=== PATIENT | male | born 1955 | race Caucasian/White ===

== ENCOUNTER 2022-01-20 13:02 | Inpatient (IN) | payer OTHER, BC ==
[~2022-01-20] VITALS: Ht 172.7 cm; Wt 59.0 kg
[2022-01-20 13:07] VITALS: BP_SYST 104; BP_SYST 98; BP_DIAS 57; BP_DIAS 60
--- NOTE | 2022-01-20 13:30 | NUR ---
66/M BIBA FROM HOME WITH C/O THROAT PAIN X1 MONTH. REPORTS PAIN HAS BEEN WORSENING TODAY AND CAUSING A HEADACHE, DENIES TAKING PAIN MEDICATIONS. PATIENT DENIES SOB, OXYGEN 98% ON ROOM AIR UPON ARRIVAL TO ED. PATIENT REPORTS HX OF THROAT CANCER, STATES HE HAS BEEN HAVING DIFFICULTY EATING AND DRINKING DUE TO PAIN, PATIENT REPORTS SIMLAR SYMPTOMS IN THE PAST. UPON ARRIVAL PATIENT PLACED IN GOWN ON BEDSIDE DIRECTOR OF CARDIAC REHABILITATION.
--- NOTE | 2022-01-20 14:19 | NUR ---
DR PASCUAL REQUESTED TO SPEAK WITH PTS FAMILY. ATTEMPTED TO CALL, NO ANSWER EM ROBLEDO, PTS DAUGHTER CALLED BACK, TRANSFERED TO DR PASCUAL
[2022-01-20] MEDS ORDERED: NACL 0.9% 1,000 ML IV ONE (14:30)
[2022-01-20] MEDS ORDERED: ceFAZolin 1,000 MG VIAL ONE (15:15)
--- NOTE | 2022-01-20 15:18 | NUR ---
PATIENT [facility] TO CT [facility]
[2022-01-20 15:21] LABS: BASOPHILS % (AUTO) 0.2 % (0.0-2.0); EOSINOPHILS # (AUTO) 0.1 K/uL (0-0.4); EOSINOPHILS % (AUTO) 0.8 % (0.0-4.0); HEMOGLOBIN 10.8 g/dL (12.0-18.0); LYMPHOCYTES # (AUTO) 1.4 K/uL (2.0-11.5); LYMPHOCYTES % (AUTO) 13.7 % (20.5-51.1); MEAN CORPUSCULAR HEMOGLOBIN 31 pg (27-31); MEAN CORPUSCULAR HGB CONC 35 g/dL (33-37); MEAN CORPUSCULAR VOLUME 89.9 fL (80-94); MONOCYTES # (AUTO) 0.6 K/uL (0.8-1.0); MONOCYTES % (AUTO) 5.8 % (1.7-9.3); NEUTROPHILS % (AUTO) 79.5 % (42.2-75.2); PLATELET COUNT (AUTO) 225 K/uL (140-450); RED BLOOD CELL COUNT(AUTO) 3.45 MIL/uL (4.20-6.10); RED CELL DISTRIBUTION WIDTH 14.1 % (11.6-13.7)
[2022-01-20] MEDS ORDERED: cefTRIAXone 1,000 MG VIAL ONE (15:37)
[2022-01-20 15:38] LABS: ALBUMIN 2.7 g/dL (3.4-5.0); ANION GAP 11.8 (8-16); ASPARTATE AMINOTRANSFERASE 18 U/L (15-37); CARBON DIOXIDE 26.2 mmol/L (21-32); CHLORIDE 107 mmol/L (98-107); CREATININE 0.8 mg/dL (0.6-1.3); GFR ARICAN-AMERICAN 124 mL/min (>90); GLUCOSE 91 mg/dL (74-106); SALICYLATE < 2.8 mg/dL (2.8-20.0); SODIUM SERUM 141 mmol/L (136-145); TOTAL BILIRUBIN 0.6 mg/dL (0.0-1.0); UREA NITROGEN, BLOOD 10 mg/dL (7-18)
[2022-01-20 15:39] LABS: ACETAMINOPHEN < 0.5 ug/ml (10-30)
--- NOTE | 2022-01-20 16:35 | NUR ---
VIVIAN SWAB COLLECTED AND WALKED TO LAB
[2022-01-20 16:38] LABS: APPEARANCE,URINE CLEAR (CLEAR); BILIRUBIN,URINE NEGATIVE (NEGATIVE); BLOOD, URINE NEGATIVE (NEGATIVE); COLOR,URINE YELLOW (YELLOW); LEUKOCYTE ESTERASE ,URINE NEGATIVE (NEGATIVE); NITRITE, URINE NEGATIVE (NEGATIVE); UGLUCOSE NEGATIVE (NEGATIVE)
[2022-01-20 17:04] LABS: BARBITURATE, URINE NEGATIVE ng/ml (NEG <=200); BENZODIAZEPINE, URINE NEGATIVE ng/mL (NEG <=200); CANNABINOID, URINE NEGATIVE ng/mL (NEG <=50); COCAINE, URINE NEGATIVE ng/mL (NEG <=300); OPIATE, URINE NEGATIVE ng/mL (NEG <=2000); PHENCYCLIDINE SCREEN,URINE NEGATIVE ng/mL (NEG <=25)
--- NOTE | 2022-01-20 17:45 | NUR ---
PATIENT RESTING IN BED ON BEDSIDE BOWLING BALL FINISHER, WILL CONTINUE TO MONITOR.
[2022-01-20] MEDS: DEXT 5% / NACL 0.45% 1,000 ML IV SCH ×2 (17:51→17:52)
--- NOTE | 2022-01-20 19:15 | NUR ---
RECEIVED REPORT FROM CHIDI TYSON
--- NOTE | 2022-01-20 19:22 | NUR ---
Pt report given to OSMAN PENN. Transfer of care at this time.
--- NOTE | 2022-01-20 19:58 | NUR ---
ADMIT ORDERS TO MEDSURG. PENDING BED ASSIG. PT ON MONITOR . USING URINAL AT BEDSIDE. PT IS NPO. SIDE RAILS UP X2
--- NOTE | 2022-01-20 20:36 | NUR ---
Patient will be admitted to care of DR NARAYAN. Admited to MED SURG. Will go to [id number]. Belongings list completed. Report to JUDAH TYSON.
[2022-01-20 21:00] VITALS: BP 134/68
--- NOTE | 2022-01-20 21:30 | NUR ---
Pt Admitted from ED at 20:40 with dx of dysphagia due to throat pain, under the care of Dipak Mcgarry. Pt is alert an oriented to person, place and situation, with periods of confusion / forgetfulness. Oriented to room , call light within reach., bed alarm applied for safety. Patient with episodes of getting out of bed with out calling for assistance. Pt requested for Seroquel ( unknown dose) and a sleeping pill that he takes at home , unable to reach pt's dtr at the number that pt provided. Dr. Garduno notified of the above, and he gave orders to give pt Seroquel 50mg po x1 and trazodone 50mg po q hs as needed for sleep , noted and carried out. pt aware. Continue to monitor and meet needs.
[2022-01-20] MEDS ORDERED: QUEtiapine FUMARATE 25 MG TAB PO SCH (22:15)
[2022-01-20] MEDS ORDERED: ONDANSETRON 4 MG/2 ML VIAL IVP PRN (22:45)
--- NOTE | 2022-01-20 23:18 | NUR ---
PER JAH KIM - SHE HAS DIFFICULTY TO ACCESS THE COMPUTER SYSTEM TO CARRY OUT 'S ORDER - PER HER PERMISSION - I WILL CARRY OUT THE A PALIWAL ORDER : NPO EXCEPTS MEDS .
[2022-01-20] MEDS: MORPHINE SULFATE 2 MG/ML SYR IVP PRN (23:25)
[2022-01-21 04:00] VITALS: BP 133/70
[2022-01-21] MEDS: DEXT 5% / NACL 0.45% 1,000 ML IV SCH ×2 (04:58→22:42)
--- NOTE | 2022-01-21 06:47 | NUR ---
PATIENT HAS BEEN SCREENED AND CATEGORIZED HIGH NUTRITION RISK. PATIENT WILL BE SEEN WITHIN 1-2 DAYS OF ADMISSION. 01/21/22-01/22/22 PAU FRAZIER MS, RDN
[2022-01-21 07:30] LABS: ANION GAP 10.1 (8-16); CARBON DIOXIDE 28.9 mmol/L (21-32); CREATININE 0.7 mg/dL (0.6-1.3)
[2022-01-21 07:31] LABS: BASOPHILS % (AUTO) 0.6 % (0.0-2.0); EOSINOPHILS # (AUTO) 0.2 K/uL (0-0.4); EOSINOPHILS % (AUTO) 2.8 % (0.0-4.0); HEMATOCRIT 28.5 % (36-52); HEMOGLOBIN 10.1 g/dL (12.0-18.0); LYMPHOCYTES # (AUTO) 1.5 K/uL (2.0-11.5); LYMPHOCYTES % (AUTO) 26.4 % (20.5-51.1); MEAN CORPUSCULAR HEMOGLOBIN 32 pg (27-31); MEAN CORPUSCULAR HGB CONC 35 g/dL (33-37); MEAN CORPUSCULAR VOLUME 89.5 fL (80-94); MONOCYTES # (AUTO) 0.5 K/uL (0.8-1.0); MONOCYTES % (AUTO) 8.1 % (1.7-9.3); NEUTROPHILS # (AUTO) 3.6 K/uL (1.8-7.7); NEUTROPHILS % (AUTO) 62.1 % (42.2-75.2); PLATELET COUNT (AUTO) 230 K/uL (140-450); RED BLOOD CELL COUNT(AUTO) 3.19 MIL/uL (4.20-6.10); RED CELL DISTRIBUTION WIDTH 14.2 % (11.6-13.7); WHITE BLOOD COUNT (AUTO) 5.8 K/uL (4.8-10.8)
[2022-01-21 07:47] LABS: MAGNESIUM 2.1 mg/dL (1.8-2.4); PHOSPHORUS 4.3 mg/dL (2.5-4.9)
[2022-01-21 08:00] VITALS: BP 153/86
--- NOTE | 2022-01-21 08:00 | NUR ---
RECEIVED REPORT FROM MEDICAL DATA ANALYST FOR CONTINUITY OF CARE. PATIENT ALERT AWAKE ORIENTED X4, NOT IN ANY DISTRESS NOTED. WITH IVF ON GOING AND INFUSING WELL. NPO OBSERVED, PENDING ST EVAL. NEEDS ATTENDED. WILL CONTINUE TO MONITOR.
--- NOTE | 2022-01-21 10:00 | NUR ---
PATIENT KEEPS CALLING AND ASKING IF HE CAN EAT, EXPLAINED TO HIM THAT WE NEED TO WAIT FOR ST EVAL. SEEN BY DR. Carlo HERNDON. WILL CONTINUE TO MONITOR.
--- NOTE | 2022-01-21 11:20 | NUR ---
(01/21/22) RD INITIAL ASSESSMENT COMPLETED PLEASE REFER TO NUTRITION ASSESSMENT UNDER CARE ACTIVITY FOR ESTIMATED NUTRITIONAL NEEDS. RD RECOMMENDATIONS: 1. CONTINUE NPO MEDICALLY APPRORIATE. 2. IF ABLE TO START PO DIET, CONSIDER REGULAR IN TEXTURES/CONSISTENCY PER MANAGER GAMING RECS. 3. IF UNABLE TO START PO DIET, CONSIDER ALTERNATE ROUTE OF NUTRITION (TF OR PPN/TPN) --FOR TF, CONSIDER JEVITY 1.2 AT 60 ML/HR WITH FWF 100 ML Q4H (600 ML). THIS WILL PROVIDE 1440 ML FREE WATER, 1728 KCAL, 80 GM PROTEIN, AND 1162 ML FREE WATER. *START AT 20 ML/HR AND ADVANCE BY 10 ML Q4H UNTIL GOAL OF 60 ML/HR IS REACHED. --FOR PPN/TPN, PER PHARMACY. 3. CONSULT RDN PRN. 4. RD WILL F/U 2-3 DAYS; HIGH RISK. PAU FRAZIER, MS, RDN
--- NOTE | 2022-01-21 11:45 | NUR ---
PAGED ST EVAL NUMBER FOR THE WEEKEND AND LEFT MESSAGE. WILL CONTINUE TO MONITOR.
[2022-01-21] MEDS: ACETAMINOPHEN 325 MG TAB PO PRN ×2 (12:48→21:43)
--- NOTE | 2022-01-21 13:00 | NUR ---
SEEN BY DR. NARAYAN, WITH ORDERS FOR CONSULT WITH DR. TYLER AND PALOMO.
--- NOTE | 2022-01-21 14:51 | NUR ---
PT WAS SEEN FOR DYSPHAGIA. PT WAS COUGHING FOR PUREE DIET WITH HONEY THICK LIQUID. RECOMMENDATION NOTHING BY MOUTH. ALTERNATE MODE OF FEEDING IN CONSULTATION WITH PHYSICIAN. REEVALUATION.
[2022-01-21 16:00] VITALS: BP 102/72
[2022-01-21] MEDS ORDERED: VANCOMYCIN PER PHARMACY MC PRN (16:00)
[2022-01-21] MEDS: PIPERACILLIN/TAZOBACTAM 3.375 GM in DEXTROSE 5% 50 ML IV SCH ×2 (18:39→23:58)
[2022-01-21] MEDS: VANCOMYCIN 750 MG in DEXTROSE 5% 250 ML IV SCH (18:41)
--- NOTE | 2022-01-21 19:28 | NUR ---
REPORT GIVEN TO THE NEXT SHIFT FOR CONTINUITY OF CARE. PATIENT IN STABLE CONDITION.
--- NOTE | 2022-01-21 19:29 | NUR ---
RECEIVED ENDORSEMENT FROM JAH DÍAZ FOR CONTINUITY OF CARE. PATIENT IS AWAKE AND STABLE. A&OX3. VERBALLY RESPONSIVE AND ABLE TO COMMUNICATE NEEDS. ON ROOM AIR WITH NO APPARENT S/SX OF ACUTE DISTRESS. RESPIRATIONS EVEN AND UNLABORED WITH NO APPARENT S/SX OF ACUTE DISTRESS. IV ON LAC IS PATENT/INTACT WITH D5-1/2NS INFUSING AT 100 ML/HR. PATIENT'S SKIN IS INTACT. PATIENT IS AMBULATORY AND CONTINENT OF BM AND VOID. PLAN OF CARE AND WHITE COMMUNICATION BOARD UPDATED. ALL SAFETY MEASURES IN PLACE. BED IN LOW/LOCKED POSITION. CALL LIGHT WITHIN REACH. WILL CONTINUE TO MONITOR.
[2022-01-21 20:00] VITALS: BP 141/92
--- NOTE | 2022-01-21 20:00 | NUR ---
Patient's Plan of Care was discussed and reviewed with OSMAN: JEANIE
[2022-01-21] MEDS: traZODone 50 MG TAB PO PRN (21:14)
--- NOTE | 2022-01-21 21:15 | NUR ---
ADMINISTERED SCHEDULED PO MEDS PER MD ORDER. TOLERATED WELL. DENIES PAIN. ON ROOM AIR WITH NO APPARENT S/SX OF ACUTE DISTRESS. PATIENT IS C/O FEELING ANXIOUS. EDUCATED PATIENT THAT SCHEDULED PO MED WILL HELP WITH ANXIETY. ENCOURAGED PATIENT TO TAKE DEEP BREATHS TO REDUCE ANXIETY. PATIENT FOLLOWED VERBAL PROMPT. WHITE COMMUNICATION BOARD UPDATED. ALL SAFETY MEASURES IN PLACE. BED IN LOW/LOCKED POSITION. WILL CONTINUE TO MONITOR.
[2022-01-21] MEDS ORDERED: ZOLPIDEM 5 MG TAB PO PRN (22:40)
[2022-01-21] MEDS ORDERED: ZOLPIDEM 5 MG TAB ONE (22:55)
--- NOTE | 2022-01-22 01:20 | NUR ---
CHECKED PATIENT. PATIENT IS STABLE AND ASLEEP. CHEST IS RISING AND FALLING EVENLY. RESPIRATIONS EVEN AND UNLABORED WITH NO APPARENT S/SX OF ACUTE DISTRESS. WHITE COMMUNICATION BOARD UPDATED. ALL SAFETY MEASURES IN PLACE. BED IN LOW/LOCKED POSITION. CALL LIGHT WITHIN REACH. WILL CONTINUE TO MONITOR.
[2022-01-22] MEDS: MORPHINE SULFATE 4 MG/ML SYR IVP PRN (01:45)
[2022-01-22] MEDS: LORazepam 2 MG/ML VIAL IVP PRN (02:49)
--- NOTE | 2022-01-22 03:26 | NUR ---
PATIENT IS STABLE AND RESTING IN BED QUIETLY. DENIES PAIN. RESPIRATIONS EVEN AND UNLABORED WITH NO APPARENT S/SX OF ACUTE DISTRESS. WHITE COMMUNICATION BOARD UPDATED. ALL SAFETY MEASURES IN PLACE. BED IN LOW/LOCKED POSITION. CALL LIGHT WITHIN REACH. WILL CONTINUE TO MONITOR.
[2022-01-22 04:00] VITALS: BP 136/89
[2022-01-22] MEDS: PIPERACILLIN/TAZOBACTAM 3.375 GM in DEXTROSE 5% 50 ML IV SCH ×3 (05:15→18:44)
--- NOTE | 2022-01-22 05:20 | NUR ---
PATIENT IS STABLE AND AWAKE. PATIENT IS WONDERING WHY HE WASN'T ABLE TO GET ANY SLEEP AT ALL LAST NIGHT EVEN AFTER ALL THE MEDICATIONS TAKEN TO AIDE WITH INSOMNIA. WILL ENDORSE TO DAYSHIFT TO LET PRIMARY PHYSICIAN KNOW ABOUT PATIENT'S CONCERN. PATIENT DENIES PAIN AT THIS TIME. ALL NEEDS MET. WHITE COMMUNICATION BOARD UPDATED. ALL SAFETY MEASURES IN PLACE. BED IN LOW/LOCKED POSITION. WILL CONTINUE TO MONITOR.
[2022-01-22] MEDS: VANCOMYCIN 750 MG in DEXTROSE 5% 250 ML IV SCH ×2 (06:24→20:01)
[2022-01-22 06:57] LABS: BASOPHILS % (AUTO) 0.7 % (0.0-2.0); EOSINOPHILS # (AUTO) 0.1 K/uL (0-0.4); EOSINOPHILS % (AUTO) 3.2 % (0.0-4.0); HEMATOCRIT 30.5 % (36-52); HEMOGLOBIN 10.8 g/dL (12.0-18.0); LYMPHOCYTES # (AUTO) 1.2 K/uL (2.0-11.5); MEAN CORPUSCULAR HEMOGLOBIN 31 pg (27-31); MEAN CORPUSCULAR HGB CONC 35 g/dL (33-37); MEAN CORPUSCULAR VOLUME 88.1 fL (80-94); MONOCYTES # (AUTO) 0.3 K/uL (0.8-1.0); MONOCYTES % (AUTO) 8.2 % (1.7-9.3); NEUTROPHILS # (AUTO) 1.9 K/uL (1.8-7.7); NEUTROPHILS % (AUTO) 53.9 % (42.2-75.2); PLATELET COUNT (AUTO) 272 K/uL (140-450); RED BLOOD CELL COUNT(AUTO) 3.46 MIL/uL (4.20-6.10); RED CELL DISTRIBUTION WIDTH 14.3 % (11.6-13.7); WHITE BLOOD COUNT (AUTO) 3.6 K/uL (4.8-10.8)
[2022-01-22 07:12] LABS: ANION GAP 8.5 (8-16); CARBON DIOXIDE 32.1 mmol/L (21-32); CREATININE 0.9 mg/dL (0.6-1.3); POTASSIUM 3.6 mmol/L (3.5-5.1)
--- NOTE | 2022-01-22 07:25 | NUR ---
ENDORSED PATIENT TO JAH VANN FOR CONTINUITY OF CARE. PATIENT IS STABLE.
--- NOTE | 2022-01-22 08:00 | NUR ---
RECEIVED REPORT FROM LUDLOW MACHINE OPERATOR FOR CONTINUITY OF CARE. PATIENT ALERT AWAKE ORIENTED X3, WITH FORGETFULNESS AT TIMES. WITH IVF ON GOING AND INFUSING WELL. PATIENT VERY ANXIOUS ABOUT HIS DIET. EXPLAINED TO HIM THAT HE IS NOTHING BY MOUTH SINCE HE FAILED THE SWALLOW EVAL. PATIENT UNDERSTAND. NEEDS ATTENDED. WILL CONTINUE TO MONITOR.
[2022-01-22] MEDS: DEXT 5% / NACL 0.45% 1,000 ML IV SCH ×2 (08:35→18:46)
--- NOTE | 2022-01-22 10:00 | NUR ---
RESTING IN BED, NOT IN DISTRESS NOTED.
--- NOTE | 2022-01-22 11:57 | NUR ---
IV ANTIBIOTIC GIVEN AND INFUSING WELL, NO SIGN OF REACTION NOTED.
[2022-01-22 16:00] VITALS: BP 152/88
--- NOTE | 2022-01-22 17:30 | NUR ---
SEEN BY DR. NARAYAN, WITH ORDER FOR CT, UNABLE TO DO ORAL CONTRAST DUE TO DYSPHAGIA AND FAILED SWALLOW EVAL. NOTIFIED DR. NARAYAN AND CANCELLED THE ORDER. FOR TPN.
--- NOTE | 2022-01-22 19:00 | NUR ---
PATIENT ACCIDENTALLY REMOVED IV, RE INSERTED ON THE RIGHT FOREARM.
[2022-01-22] MEDS ORDERED: VANCOMYCIN 500 MG VIAL ONE (19:43)
[2022-01-22] MEDS ORDERED: MAGNESIUM HYDROXIDE 2400 MG/30 ML UDC PO SCH (21:41)
[2022-01-22 23:20] VITALS: BP 157/62
--- NOTE | 2022-01-23 00:04 | NUR ---
On start of shift pt was up and walking around seems he was agitated. Pulling out his IV and only being able to orientate for short moments before becoming agitated again. Pt complained of not having anything to eat for days, RN educated pt concerning his diagnosis and safety precautions around eating. IV replaced and before RN could get Ativan pt had pulled IV again. pt brought closer to nurse station and yet he was still agitated. Manage to get IV place Ativan 2mg given around 11:25pm, back in bed and sleeping. MD Oedn notified of activities surrounding pt during shift. No IV antibiotics could be continued at this time due to pt. safety . RN at beside for safety. will continue to monitor
[2022-01-23] MEDS: LORazepam 2 MG/ML VIAL IVP PRN ×3 (00:24→16:36)
[2022-01-23] MEDS: HALOPERIDOL IM 5 MG/ML VIAL IM PRN ×2 (02:48→09:39)
[2022-01-23] MEDS: hydrALAZINE 20 MG/ML VIAL IVP PRN (02:49)
[2022-01-23 04:55] VITALS: BP 155/90
[2022-01-23 05:02] LABS: EOSINOPHILS # (AUTO) 0.1 K/uL (0-0.4); EOSINOPHILS % (AUTO) 1.9 % (0.0-4.0); HEMATOCRIT 30.1 % (36-52); HEMOGLOBIN 10.7 g/dL (12.0-18.0); LYMPHOCYTES # (AUTO) 1.6 K/uL (2.0-11.5); LYMPHOCYTES % (AUTO) 35.6 % (20.5-51.1); MEAN CORPUSCULAR HEMOGLOBIN 31 pg (27-31); MEAN CORPUSCULAR HGB CONC 36 g/dL (33-37); MEAN CORPUSCULAR VOLUME 88.3 fL (80-94); MONOCYTES # (AUTO) 0.4 K/uL (0.8-1.0); MONOCYTES % (AUTO) 8.6 % (1.7-9.3); NEUTROPHILS # (AUTO) 2.5 K/uL (1.8-7.7); NEUTROPHILS % (AUTO) 52.9 % (42.2-75.2); PLATELET COUNT (AUTO) 283 K/uL (140-450); RED BLOOD CELL COUNT(AUTO) 3.41 MIL/uL (4.20-6.10); RED CELL DISTRIBUTION WIDTH 14.5 % (11.6-13.7); WHITE BLOOD COUNT (AUTO) 4.6 K/uL (4.8-10.8)
[2022-01-23 05:15] LABS: ALBUMIN 3.1 g/dL (3.4-5.0); ANION GAP 11.3 (8-16); CARBON DIOXIDE 28.4 mmol/L (21-32); CREATININE 0.8 mg/dL (0.6-1.3); POTASSIUM 3.7 mmol/L (3.5-5.1); TOTAL BILIRUBIN 0.6 mg/dL (0.0-1.0)
[2022-01-23] MEDS ORDERED: hydrALAZINE 20 MG/ML VIAL IVP SCH (05:25)
[2022-01-23] MEDS: PIPERACILLIN/TAZOBACTAM 3.375 GM in DEXTROSE 5% 50 ML IV SCH ×5 (06:00→18:46)
--- NOTE | 2022-01-23 06:43 | NUR ---
pt has been agitated and restless all night. requires one on one sitter as he gets agitated he challenges his abilities during this time which he is very unstable.made supervisory aide aware of sittner need. through out shift checked to assess mental status, pt alert and oriented to place, time, self.However only reorients for short moments at a time. Pt BP X 2 was in the 180s sbp which he c/o very bad headache notifed and orders given. Stated having some dizziness. pT HAS URINARY frequency urinating up 8 times small amounts during shift Was ativan x2 doses. haldol x1 dose and hydralazine X2 doses. Addendum: 01/23/22 at 0757 by Agency JAH TYSON MD Garduno notified and updated regarding last night events
[2022-01-23] MEDS: DEXT 5% / NACL 0.45% 1,000 ML IV SCH ×2 (09:00→14:35)
--- NOTE | 2022-01-23 09:30 | NUR ---
PATIENT AGIATETED, ATTEMPTING TO GET OUT OF BED AND PULL IV LINES, IM HALDOL ADMINISTERED PER EMAR
[2022-01-23] MEDS: VANCOMYCIN 750 MG in DEXTROSE 5% 250 ML IV SCH ×2 (10:31→22:00)
--- NOTE | 2022-01-23 14:00 | NUR ---
PATIENT ATTEMPTING TO GET OUT OF BED AND REMOVING IV LINE, ATTEMPTED TO PROVIDE CALM, ENVIRONMENT AND RE DIRECT [id number], ALL ATTEMPTS INEFFECTIVE, ORDE Addendum: 01/23/22 at 1729 by Agency Nurse 18, RN RN AMEND ORDERS REQUESTED FROM DR. NARAYAN FOR BILATERAL WRIST RESTRAINTS
[2022-01-23 18:52] VITALS: BP 131/76
--- NOTE | 2022-01-23 19:17 | NUR ---
SPOKE WITH DAUGHTER'S FROM [facility]. ENCOURAGED THEM TO FAX OVER THE DOCUMENTATION THAT STATES THEY ARE THE POWER OF RECOVERY MANAGER FOR THE PATIENT AND ANY AND ALL PREVIOUS MEDICAL HISTORY. PATIENT IN BED AWAKE AND ORIENTED X 2. PATIENT WANTS TO HAVE SLEEP AID AND REMOVAL OF RESTRAINTS. PATIENT WAS GIVEN EDUCATION OF WHY THE RESTRAINTS AND THE BEST WAY TO REMOVE THE RESTRAINTS. PATIENT UNDERSTOOD AND AGREED. PATIENT IS ON ROOM AIR WITHOUT RESPIRATORY DISTRESS. PATIENT HAS NO COMPLAINTS FOR PAIN/DISCOMFORT AT THIS TIME. PATIENT PICC LINE WAS CANCELLED AT THIS TIME BECAUSE THE TPN IS NOT READY AND TOMORROW PATIENT WILL HAVE EGD PROCEDURE WITH POSSIBLE PEG INSERTION. IV SITE CLEAN AND INTACT. PATIENT IS BEDBOUND SIDE RAILS UP X 4 FOR SAFETY BECAUSE OF REPORTED ATTEMPTS TO TRY TO JUMP OUT OF THE BED. NURSING WILL FREQUENT HIS ROOM FOR ALL NEEDS AND ANTICIPATED WANTS. [email or web address]
[2022-01-23] MEDS: MAGNESIUM HYDROXIDE 2400 MG/30 ML UDC PO SCH (21:00)
--- NOTE | 2022-01-23 23:13 | NUR ---
2300 SXNED PT FOR SPUTUM SAMPLE AND SENT TO LAB
--- NOTE | 2022-01-23 23:45 | NUR ---
PATIENT IN BED CONTINUES ON BILATERAL WRIST RESTRAINS WITH 15 MINUTES ON RELEASE AND REPOSITION. SIDE RAILS UP X 3 FOR SAFETY. PATIENT ON ROOM AIR WITHOUT RESPIRATORY DISTRESS. NO S/SX OF PAIN/DISCOMFORT. IV INTACT AND PATENT. BED AT THE LOWEST LEVEL. NURSING WILL CONTINUE TO MONITOR MORE FREQUENT TO ANTICIPATE HIS NEEDS. [email or web address]
[2022-01-24] VITALS: BP 131/76
[2022-01-24] MEDS: DEXT 5% / NACL 0.45% 1,000 ML IV SCH ×2 (01:10→10:35)
--- NOTE | 2022-01-24 01:33 | NUR ---
PATIENT REQUESTED TO BE CHANGED. PATIENT WAS CHANGED AND TOWARDS THE END IF HE CHANGING HE ATTEMPTED TO PULL ON HIS IV LINE. NURSING STOPPED HIM BEFORE HE WAS ABLE TO VERBALLY. NURSING EXPLAINED THE NEED TO KEEP THE RESTRAINTS ON. PATIENT SAID OH OK. PATIENT REQUESTED FOR WARM BLANKETS AND WENT BACK TO SLEEP. SIDE RAILS UP X 2 FOR SAFETY. NO RESPIRATORY DISTRESS. PATIENT DENIES ANY PAIN/DISCOMFORT AT THIS TIME. [email or web address]
[2022-01-24] MEDS: LORazepam 2 MG/ML VIAL IVP PRN ×2 (02:50→17:55)
--- NOTE | 2022-01-24 02:50 | NUR ---
PATIENT STATED HAVING ANXIETY, ANXIETY MEDS ADMINISTERED ORDERED.
[2022-01-24 04:00] VITALS: BP 156/95
[2022-01-24 05:27] LABS: ANION GAP 11.2 (8-16); CARBON DIOXIDE 27.5 mmol/L (21-32); POTASSIUM 3.7 mmol/L (3.5-5.1)
--- NOTE | 2022-01-24 05:29 | NUR ---
PATIENT OBSERVED IN BED ASLEEP. NO NOTED RESPIRATORY DISTRESS. RESTRAINTS REMAIN ON TO KEEP PATIENT SAFE. PATIENT DENIES ANY PAIN/DISCOMFORT AT THIS TIME. SIDE RAILS UP X 2 FOR SAFETY. SITTER AT BED SIDE FOR SAFETY. [email or web address]
[2022-01-24] MEDS: PIPERACILLIN/TAZOBACTAM 3.375 GM in DEXTROSE 5% 50 ML IV SCH ×6 (05:42→18:35)
[2022-01-24] MEDS: MORPHINE SULFATE 4 MG/ML SYR IVP PRN (05:42)
--- NOTE | 2022-01-24 06:13 | NUR ---
PATIENT WAS GIVEN PAIN MEDICATION. PATIENT WAS GRIMACING AND RESTLESS BEHAVIOR. COVERING RN GAVE THE MORPHINE. CONTINUES WITH RESTRAINS ON BILATERAL WRIST. SIDE RAILS UP X 2. NO NOTED RESPIRATORY DISTRESS. PATIENT DENIES ANY PAIN/DISCOMFORT AT THIS TIME. [email or web address]
[2022-01-24 06:27] LABS: BASOPHILS % (AUTO) 0.4 % (0.0-2.0); EOSINOPHILS # (AUTO) 0.1 K/uL (0-0.4); EOSINOPHILS % (AUTO) 1.1 % (0.0-4.0); HEMATOCRIT 33.2 % (36-52); HEMOGLOBIN 11.8 g/dL (12.0-18.0); LYMPHOCYTES # (AUTO) 1.6 K/uL (2.0-11.5); LYMPHOCYTES % (AUTO) 32.8 % (20.5-51.1); MEAN CORPUSCULAR HEMOGLOBIN 31 pg (27-31); MEAN CORPUSCULAR HGB CONC 36 g/dL (33-37); MEAN CORPUSCULAR VOLUME 87.8 fL (80-94); MONOCYTES # (AUTO) 0.5 K/uL (0.8-1.0); MONOCYTES % (AUTO) 10.4 % (1.7-9.3); NEUTROPHILS # (AUTO) 2.7 K/uL (1.8-7.7); NEUTROPHILS % (AUTO) 55.3 % (42.2-75.2); PLATELET COUNT (AUTO) 357 K/uL (140-450); RED BLOOD CELL COUNT(AUTO) 3.79 MIL/uL (4.20-6.10); RED CELL DISTRIBUTION WIDTH 14.3 % (11.6-13.7); WHITE BLOOD COUNT (AUTO) 4.8 K/uL (4.8-10.8)
--- NOTE | 2022-01-24 07:30 | NUR ---
RECEIVED REPORT FROM PROJECT SURVEYOR NURSE. PT IS LYING ON HIS BED, AWAKE. ON NPO. IV SITE ON LEFT HAND 22G, RUNNING AT D5 NS 100ML/HR. SKIN IS INTACT. DISCUSSED PLAN OF CARE. WILL CONTINUE TO MONITOR.
--- NOTE | 2022-01-24 07:35 | NUR ---
ENDORSED PATIENT TO JULIET RN FOR CONTINUITY OF CARE. PATIENT WAS STABLE AT ENDORSEMENT. [email or web address]
[2022-01-24] MEDS: hydrALAZINE 20 MG/ML VIAL IVP PRN ×2 (08:18→16:32)
--- NOTE | 2022-01-24 08:21 | NUR ---
PT BP WAS 182/100. GAVE HYDRALAZINE IVP PER DR'S ORDER. WILL RECHECK BP IN 30 MINS.
--- NOTE | 2022-01-24 09:20 | NUR ---
RECHECKED PT BP- WENT DOWN TO 151/84. WILL CONTINUE TO MONITOR.
--- NOTE | 2022-01-24 10:20 | NUR ---
CHARGE NURSE CALLED JASMIN, AND ASKED TO GIVE CONSENT FOR PT EGD PEG. JASMIN SAID SHE NEEDS TO TALK WITH THE DOCTOR TOO, BEFORE SIGNING THE CONSENT.
--- NOTE | 2022-01-24 10:49 | NUR ---
CALLED PHARMACY ABOUT PT VANCOMYCIN, AND ASKED FOR A 1000 VANCOMYCIN. PHARMACY SAID THAT I CAN USE THE ONE WE HAD, DUE AT 01/23/22 2200.
[2022-01-24] MEDS: VANCOMYCIN 750 MG in DEXTROSE 5% 250 ML IV SCH ×2 (10:58→22:40)
--- NOTE | 2022-01-24 11:56 | NUR ---
01/24/22 RD FOLLOW UP COMPLETED PLEASE REFER TO NUTRITION ASSESSMENT UNDER CARE ACTIVITY FOR ESTIMATED NUTRITIONAL NEEDS. 1. WHEN/IF MEDICALLY APPROPRIATE TO INITIATE TF, RECOMMEND JEVITY 1.2 WITH A GOAL RATE OF 60 ML/HR -FWF: 100 ML Q4H OR PER MD -START AT 10 ML/HR AND ADVANCE BY 10 ML Q4H TOLERATED -WILL PROVIDE 1728 KCAL AND 80 GM PROTEIN, MEETING 98% ESTIMATED KCAL AND 100% ESTIMATED PROTEIN NEEDS; ADEQUATE 2. RD WILL F/U 2-3 DAYS; HIGH RISK MONIQUE MALDONADO RD
--- NOTE | 2022-01-24 12:00 | NUR ---
JASMIN CALLED, WANTED TO TALK WITH HER DAD. HANDED THE PHONE TO PT.
[2022-01-24] MEDS ORDERED: MIDAZOLAM 5 MG/5 ML VIAL ONE (12:50)
[2022-01-24] MEDS ORDERED: fentaNYL citrate 0.05 MG/ML VIAL ONE (12:50)
--- NOTE | 2022-01-24 12:55 | NUR ---
OR NURSE WILL TAKE PT TO OR ROOM. TOLD OR NURSE THAT CONSENT HASN'T BEEN SIGN YET BY DAUGHTER JASMIN. OR NURSE RELAYED THAT THEY WILL DO THAT AT THE OR ROOM. OR NURSE TOOK PT TO OR ROOM.
--- NOTE | 2022-01-24 13:50 | NUR ---
PT GOT BACK FROM OR ROOM [facility]. EGD PEG DONE. PT HAS G TUBE, WITH JEVITY 1.2 TO RUN AT 30ML/HE, WITH 100ML WATER FLUSH Q6H. HOLD TF IF RESIDUAL AT 200ML AND MORE. RESUME TF ID RESIDUAL AT 100ML.
--- NOTE | 2022-01-24 13:50 | NUR ---
OR NURSE CHANGED IV SITE FROM LEFT HAND, TO RIGHT HAND, 22G.
[2022-01-24] MEDS ORDERED: MIDAZOLAM 2 MG/2 ML VIAL IVP ONE (14:45)
[2022-01-24] MEDS ORDERED: fentaNYL citrate 0.05 MG/ML VIAL IVP ONE (14:45)
[2022-01-24 16:00] VITALS: BP 156/85
--- NOTE | 2022-01-24 16:12 | NUR ---
DC PLANNING: THE PATIENT PRESENTED FOR C/O DYSPHAGIA, THROAT PAIN AND COUGH X 1 MONTH, WT LOSS OF 20 LBS. H/O THROAT CANCER AND POLYPS, FUNGAL INFECTIONS OF THE THROAT, WAS RECENTLY AT [facility] FOR THE SAME C/O. ADMITTED FOR GI CONSULT FOR EGD/PEG, PEG PLACED TODAY IN OR. CM ATTEMPTED TO SPEAK WITH THE PATIENT, HE STATES HIS THROAT HURTS, GAVE PERMISSION TO SPEAK WITH HIS DAUGHTER EM. DAVID SPOKE WITH EM BY PHONE AND STARTED TO GET SOME DETAILS, THE PHONE CALL GOT DROPPED, CM WILL REACH OUT AGAIN TOMORROW. EM FEELS THAT THE PATIENT NEEDS TO GO TO SNF, DAVID WILL DISCUSS OPTIONS WITH HER AND WILL FOLLOW. Addendum: 01/25/22 at 1624 by Leda Brand CM DC PLANNING: DAVID SPOKE WITH THE PATIENTS DAUGHTER EM, SHE WOULD LIKE THE PATIENT REFERRED TO A SNF IN [place] OR [place]. DAVID WILL FOLLOW. Addendum: 01/26/22 at 1145 by Leda Brand CM DC PLANNING: REFERRALS FAXED TO [facility] AND [facility]. CM WILL FOLLOW. Addendum: 01/26/22 at 1241 by Leda Brand CM DC PLANNING: PATIENT ACCEPTED TO [facility], ROOM 3B UNDER DR PHILLIPS CM WILL FOLLOW. Addendum: 01/26/22 at 1335 by Leda Brand CM DC PLANNING: PATIENT ALSO ACCEPTED TO [facility], ROOM 3A UNDER DR LIN. HERNANDEZ WILL FOLLOW. Addendum: 01/26/22 at 1530 by Leda Brand CM DC PLANNING: DAVID SPOKE WITH THE PATIENTS DAUGHTER JASMIN BY PHONE. SHE STATES SHE IS THE DPOA, CM CONFIRMED THAT A COPY IS ON THE PATIENTS CHART. ENDORSED THAT THE PATIENT IS ACCEPTED TO [facility], JASMIN WILL CALL BACK WITH A DECISION FOR FACILITY BUT WOULD LIKE HIM TO MOVE CLOSER TO HER IN [facility]. SHE IS CURRENTLY LOOKING AT SNF'S IN HER AREA AND WILL LET CM KNOW IF THERE IS ONE SHE WANTS INFORMATION SENT TO. STATES HER SISTER EM CAN HAVE INFORMATION ABOUT THE PATIENT BUT MAY NOT MAKE DECISIONS REGARDING HIS CARE. DAVID WILL FOLLOW. Addendum: 01/27/22 at 1056 by Leda Brand CM DC PLANNING: DAVID SPOKE WITH DR NARAYAN, THE PATIENT WILL CONTINUE ON ZOSYN IV QID X 5 MORE DAYS, CM CONFIRMED WITH [facility] THAT THEY ARE ABLE TO ADMINISTER. THE PATIENTS SPUTUM CULTURE IS POSITIVE FOR RANJANA GILBERT AT [facility] AWARE, PATIENT WILL GO TO THE SAME ROOM. [facility] WILL ASSIST WITH TRANSPORT, DAVID SPOKE WITH THE PATIENTS NURSE TO ASSIST WITH FINAL DC ORDER SO THAT TRANSPORT CAN BE SET UP. DAVID ALSO SPOKE WITH THE PATIENTS DAUGHTER JASMIN, SHE IS IN AGREEMENT WITH DC TO [facility]. DAVID WILL FOLLOW. Addendum: 01/27/22 at 1645 by Leda Brand CM DC PLANNING: PATIENT TRANSPORT ARRANGED BY [facility] WITH [facility]([phone]), [facility]SP[facility] PILOT TIME [id number]. DAVID SPOKE WITH THE PATIENTS DAUGHTER JASMIN TO ENDORSE DC TIME. DAVID WILL FOLLOW.
--- NOTE | 2022-01-24 16:32 | NUR ---
PT BP WAS 189/107. HYDRALAZINE GIVEN PER DR'S ORDER.
--- NOTE | 2022-01-24 17:55 | NUR ---
PT HR AT 130, ATIVAN GIVEN PER DR'S ORDER.
--- NOTE | 2022-01-24 19:06 | NUR ---
STARTED JEVITY 1.2, 30ML/HR, WITH 100ML WATER FLUSH Q6H. HOLD TF IF RESIDUAL AT 200ML AND MORE. RESUME TF IF RESIDUAL IS AT 100ML.
--- NOTE | 2022-01-24 19:25 | NUR ---
GAVE REPORT TO SPECIAL CRIMES INVESTIGATOR NURSE. DISCUSSED PLAN OF CARE. PT IS STABLE.
--- NOTE | 2022-01-24 19:26 | NUR ---
RECEIVED PATIENT FROM JULIET TYSON FOR CONTINUITY OF CARE. PATIENT WAS IN BED ASLEEP S/P FROM SURGERY WITH NEW GTUBE INSERTION. PATIENT REMAINS ON BILATERAL SOFT WRIST RESTRAINS AT THIS TIME. NO NOTED PAIN/DISCOMFORT. PATIENT BREATHING UNLABORED. ABDOMINAL BINDER WAS INTACT TO ENSURE PATIENT NOT TO PULL THE G-TUBE OUT. PATIENT BED AT THE LOWEST LEVEL, SIDE RAILS UP X 3 FOR SAFETY. CALL LIGHT WITHIN REACH. NURSING WILL FREQUENT PATIENT ROOM MORE OFTEN TO ANTICIPATE NEEDS AND WANTS. [email or web address]
--- NOTE | 2022-01-24 20:30 | NUR ---
PLAN OF CARE WAS DISCUSSED WITH YOBANY YOUNGBLOOD LVN AND WILL CONTINUE WITH PLAN OF CARE .
[2022-01-24] MEDS: MAGNESIUM HYDROXIDE 2400 MG/30 ML UDC PO SCH (20:47)
[2022-01-24] MEDS: traZODone 50 MG TAB PO PRN (20:54)
[2022-01-24] MEDS ORDERED: ZOLPIDEM 5 MG TAB GT PRN (21:50)
[2022-01-24] MEDS ORDERED: MAGNESIUM HYDROXIDE 2400 MG/30 ML UDC GT PRN (21:50)
[2022-01-24] MEDS ORDERED: traZODone 50 MG TAB GT PRN ×2 (21:50→22:15)
--- NOTE | 2022-01-24 21:59 | NUR ---
BP RE CHECK - 155/85 - HYDRALAZINE TIV GIVEN 5 HRS AGO
--- NOTE | 2022-01-25 00:02 | NUR ---
PATIENT WAS CHANGED BY NURSING AND GIVEN BED BATH. DRESSING TO GTUBE WAS NOTED WITH DRIED BLOOD MINIMAL. NO FACIAL GRIMACING FOR PAIN/DISCOMFORT. PATIENT WAS REPOSITIONED IN THE BED TO MAKE COMFORTABLE. HEAD OF BED ELEVATED TO 45 DEGREES TO PREVENT ASPIRATION. OXYGEN REMAINS ON NO NOTED RESPIRATORY DISTRESS. OXYGEN SATURATION AT 96%. SOFT BILATERAL SOFT RESTRAINTS ARE IN PLACE TO PREVENT PULLING OUT IV. SIDE RAILS X 4 FOR SAFETY. PATIENT HAS CALL LIGHT WITHIN REACH. [email or web address]
[2022-01-25] MEDS: PIPERACILLIN/TAZOBACTAM 3.375 GM in DEXTROSE 5% 50 ML IV SCH (00:34)
--- NOTE | 2022-01-25 03:47 | NUR ---
PATIENT IS STABLE. CONTINUES ON OXYGEN SATURATION IS AT 100%. NO NOTED RESPIRATORY DISTRESS. NO NOTED S/SX OF PAIN/DISCOMFORT AT THIS TIME. FEEDING CONTINUES TO RUN BLOCKAGE. PATIENT REMAINS ON SOFT WRIST RESTRAINTS FOR SAFETY. KEPT CLEAN AND DRY. SIDE RAILS UP X 4 FOR SAFETY. CALL LIGHT WITHIN REACH. [email or web address]
[2022-01-25 04:00] VITALS: BP 158/81
--- NOTE | 2022-01-25 05:04 | NUR ---
PATIENT WAS GIVEN ORAL CARE AND DEEP SUCTION BECAUSE IT WAS REPORTED BY BONDERIZER THE PATIENT WAS COUGHING AND GURGLING ON SPUTUM. SUCTION WAS THICK PINKISH WHITE. NO NOTED G-TUBE FEEDING SUCTIONED OUT. OXYGEN SATURATION WAS 91% THEN AFTER DEEP SUCTIONING 98%. NOTIFIED THE MD FOR POSSIBLE ORDERS. NURSING REMOVED ONE SOFT WRIST RESTRAIN TO MONITOR READINESS TO DISCONTINUE. [email or web address]
[2022-01-25 05:40] LABS: ANION GAP 9.5 (8-16); CREATININE 1.5 mg/dL (0.6-1.3); POTASSIUM 3.5 mmol/L (3.5-5.1)
[2022-01-25 06:32] LABS: BASOPHILS % (AUTO) 0.3 % (0.0-2.0); EOSINOPHILS % (AUTO) 0.3 % (0.0-4.0); HEMATOCRIT 34.5 % (36-52); LYMPHOCYTES # (AUTO) 1.1 K/uL (2.0-11.5); LYMPHOCYTES % (AUTO) 14.7 % (20.5-51.1); MEAN CORPUSCULAR HEMOGLOBIN 31 pg (27-31); MEAN CORPUSCULAR HGB CONC 35 g/dL (33-37); MEAN CORPUSCULAR VOLUME 88.8 fL (80-94); MONOCYTES # (AUTO) 0.6 K/uL (0.8-1.0); MONOCYTES % (AUTO) 8.6 % (1.7-9.3); NEUTROPHILS # (AUTO) 5.7 K/uL (1.8-7.7); NEUTROPHILS % (AUTO) 76.1 % (42.2-75.2); PLATELET COUNT (AUTO) 339 K/uL (140-450); RED BLOOD CELL COUNT(AUTO) 3.89 MIL/uL (4.20-6.10); RED CELL DISTRIBUTION WIDTH 14.2 % (11.6-13.7); WHITE BLOOD COUNT (AUTO) 7.5 K/uL (4.8-10.8)
[2022-01-25] MEDS: DEXT 5% / NACL 0.45% 1,000 ML IV SCH (06:59)
--- NOTE | 2022-01-25 07:22 | NUR ---
ENDORSED PATIENT TO MIGNON RN FOR CONTINUITY OF CARE. PATIENT WAS STABLE AT THE CHANGE OF SHIFT. [email or web address]
[2022-01-25 08:00] VITALS: BP 145/70
--- NOTE | 2022-01-25 08:00 | NUR ---
RECEIVED REPORT FROM YOSEF TYSON. PT RESTING WITH EYES CLOSED. RR EVEN & UNLABORED. COUGH NOTED. SUCTIONED PT FOR 10 MINUTES IN INTERVALS. LARGE AMOUNT OF PHLEGM NOTED. PROVIDED ORAL CARE. GTUBE FEEDING INFUSING. 60 ML RESIDUAL. IVF INFUSING. RESTRAINTS REMOVED AT THIS TIME. BILATERAL UPPER ARM WITH GOOD C/S/M. NEEDS ALL MET AT THIS TIME. SAFETY MEASURES IN PLACE. WILL CONTINUE TO MONITOR CLOSELY.
--- NOTE | 2022-01-25 11:25 | NUR ---
PT RESTING WITH EYES CLOSED. NO COUGH NOTED AT THIS TIME. RR EVEN & UNLABORED. HOB ELEVATED. GTUBE RESIDUAL = 50 ML. NEEDS ALL MET AT THIS TIME. SAFETY MEASURES IN PLACE. HOURLY ROUNDS BEING CONDUCTED
--- NOTE | 2022-01-25 14:54 | NUR ---
PHARMACY STATES VANCO TROUGH RESULTS ARE STILL NOT IN. PHARMACY WILL CONTACT RN ONCE IT IS IN. PT STILL RESTING WITH EYES CLOSED. RESPONSIVE TO LIGHT STIMULI. GTUBE FEEDING WITH 30 ML RESIDUAL. HOB ELEVATED. NO COUGH NOTED. RR EVEN & UNLABORED.
[2022-01-25 16:00] VITALS: BP 120/75
--- NOTE | 2022-01-25 17:05 | NUR ---
VANCO TROUGH RESULTS GIVEN BY LAB. CONTACTED PHARMACY REGARDING THE RESULTS. PHARMACY STATES TO GIVE THE VANCO. WILL ADMINISTER IVPB.
[2022-01-25] MEDS: VANCOMYCIN 750 MG in DEXTROSE 5% 250 ML IV SCH (17:21)
--- NOTE | 2022-01-25 17:30 | NUR ---
PLAN OF CARE DISCUSSED WITH JASMIN (DAUGHTER).
[2022-01-25] MEDS: MORPHINE SULFATE 2 MG/ML SYR IVP PRN (18:30)
--- NOTE | 2022-01-25 18:57 | NUR ---
FAMILY AT BEDSIDE. PT ANSWERS SHORT QUESTIONS IN LOW VOICE. SEE EMAR FOR PAIN MEDICATION ADMINISTRATION. NO COUGH NOTED AT THIS TIME. NO SOB OR RESPIRATORY DISTRESS. ON 2L NC. GTUBE FEEDING WITH 30 ML RESIDUAL. HOB ELEVATED. VSS. WILL ENDORSE POC TO NIGHTSHIFT.
--- NOTE | 2022-01-25 19:30 | NUR ---
GET THE REPORT FROM MORNING NURSE, PATIENT IS LYING ON BED,PATIENT IS ALERT ORIENTED X1 , CALL LIGHT IS WITHIN THE REACH, WILL CONTINUE TO MONITOR PATIENT.
--- NOTE | 2022-01-25 19:34 | NUR ---
REPORT GIVEN TO NIGHTSORFT RUBEN TYSON FOR CONTINUITY OF CARE.
[2022-01-25 20:00] VITALS: BP 149/66
--- NOTE | 2022-01-25 20:00 | NUR ---
PATIENT IS LYING ON BED, VITAL SIGN IS WITHIN THE NORMAL RANGE, ALL SCHEDULE MEDICATION IS GIVEN PER DOCTOR ORDER, CALL LIGHT IS WITHIN THE REACH, WILL CONTINUE TO MONITOR PATIENT.
[2022-01-25] MEDS: LORazepam 2 MG/ML VIAL IVP PRN (23:20)
--- NOTE | 2022-01-25 23:23 | NUR ---
PATIENT IS ANXIOUS AND TRYING TO PULL OUT NASAL CANNULA ,IV LINE, GAVE ATIVAN 2MG IV PRN PER DOCTOR ORDER, CALL LIGHT IS WITHIN THE REACH, WILL CONTINUE TO MONITOR PATIENT.
[2022-01-26] MEDS: PIPERACILLIN/TAZOBACTAM 3.375 GM in DEXTROSE 5% 50 ML IV SCH ×5 (00:25→18:06)
--- NOTE | 2022-01-26 00:43 | NUR ---
PATIENT IS LYING ON BED, NO ANY COMPLAIN OF PAIN OR SHORTNESS OF BREATH AT THIS TIME, SUCTION THE PATIENT MOUTH, CALL LIGHT IS WITHIN THE REACH, WILL CONTINUE TO MONITOR PATIENT.
[2022-01-26 04:00] VITALS: BP 165/95
--- NOTE | 2022-01-26 04:20 | NUR ---
PATIENT IS LYING ON BED, NO ANY COMPLAIN OF PAIN OR DISTRESS NOTED AT THIS TIME, BLOOD PRESSURE IS 165/95.HR:114, WILL MEDICATE PATIENT, CLL LIGHT IS WITHIN THE REACH, WILL CONTINUE TO MONITOR PATIENT.
[2022-01-26] MEDS: hydrALAZINE 20 MG/ML VIAL IVP PRN (04:55)
--- NOTE | 2022-01-26 04:58 | NUR ---
PATIENT BLOOD PRESSURE IS 165/95 , HR:114 ,MEDICATED WITH HYDRALAZINE 5MG 0.25ML IV PRN PER DOCTOR ORDER, WILL REASSESS BLOOD PRESSURE WITHIN HOUR, CALL LIGHT IS WITHIN THE REACH,WILL CONTINUE TO MONITOR PATIENT.
[2022-01-26] MEDS ORDERED: VANCOMYCIN 750 MG in DEXTROSE 5% 250 ML IV SCH (05:00)
--- NOTE | 2022-01-26 05:55 | NUR ---
REASSESS PATIENT BLOOD PRESSURE, BP: 127/ 72. HR: 91/M, O2 SAT: 98, RR: 20/M, T: 98.2, PATIENT IS AOx2, ALL SCHEDULE MEDICATION WAS GIVEN PER MD ORDER, CALL LIGHT WITHIN REACH. WILL CONTINUE TO MONITOR PATIENT.
[2022-01-26 06:07] LABS: CARBON DIOXIDE 29.5 mmol/L (21-32); CREATININE 1.5 mg/dL (0.6-1.3); POTASSIUM 3.5 mmol/L (3.5-5.1)
[2022-01-26] MEDS: DEXT 5% / NACL 0.45% 1,000 ML IV SCH (06:18)
[2022-01-26 06:54] LABS: BASOPHILS % (AUTO) 0.4 % (0.0-2.0); EOSINOPHILS # (AUTO) 0.1 K/uL (0-0.4); EOSINOPHILS % (AUTO) 0.9 % (0.0-4.0); HEMATOCRIT 32.2 % (36-52); HEMOGLOBIN 11.3 g/dL (12.0-18.0); LYMPHOCYTES # (AUTO) 1.3 K/uL (2.0-11.5); LYMPHOCYTES % (AUTO) 18.8 % (20.5-51.1); MEAN CORPUSCULAR HEMOGLOBIN 31 pg (27-31); MEAN CORPUSCULAR HGB CONC 35 g/dL (33-37); MEAN CORPUSCULAR VOLUME 88.4 fL (80-94); MONOCYTES # (AUTO) 0.5 K/uL (0.8-1.0); MONOCYTES % (AUTO) 7.2 % (1.7-9.3); NEUTROPHILS # (AUTO) 5.1 K/uL (1.8-7.7); NEUTROPHILS % (AUTO) 72.7 % (42.2-75.2); PLATELET COUNT (AUTO) 303 K/uL (140-450); RED BLOOD CELL COUNT(AUTO) 3.64 MIL/uL (4.20-6.10); RED CELL DISTRIBUTION WIDTH 14.4 % (11.6-13.7)
--- NOTE | 2022-01-26 08:05 | NUR ---
GAVE REPORT TO MORNING NURSE TALA FOR CONTINUOS OF CARE, PATIENT IS STABLE.
--- NOTE | 2022-01-26 08:06 | NUR ---
RECEIVED REPORT FROM APPLICATION OPERATIONS ENGINEER NURSE FOR CONTINUITY OF CARE. PT IS SLEEPING, EASILY AROUSABLE BY VERBAL STIMULI. NO DISTRESS NOTED. BREATHING EVEN AND UNLABORED ON 2L NC. IV SITE ON LEFT HAND RUNNING D5 1/2 NS AT 40ML/HR. PT IN TUBE FEEDING RUNNING AT 30CC/HR JEVITY 1.2 SILVANO WITH H2O FLUSHING 100 ML/HR EVERY 6HRS. SKIN IS INTACT, WARM AND DRY TO TOUCH. CALL LIGHT WITHIN REACH. SAFETY MEASURES IN PLACE. WILL CONTINUE TO MONITOR.
[2022-01-26] MEDS: NACL 0.9% 1,000 ML IV SCH ×2 (10:55→23:57)
--- NOTE | 2022-01-26 11:15 | NUR ---
RADIOLOGY AT BEDSIDE FOR US KIDNEY.
[2022-01-26 12:00] VITALS: BP 136/71
--- NOTE | 2022-01-26 12:41 | NUR ---
IV LINE WAS PULLED OUT. INSERTED NEW IV LINE. ATTEMPTED ONCE. IV LINE NOW ON LFA 22G. PT TOLERATED WELL. HANG NEW TUBE FEEDING. NO RESIDUAL. JEVITY NOW RUNNING AT 40ML/HR. PT TOLERATED WELL. NO NAUSEA AND VOMITING. WILL CONTINUE TO MONITOR.
--- NOTE | 2022-01-26 14:10 | NUR ---
PT DAUGHTER, JASMIN CALLED REQUESTING DR TO CALL HER TO GIVE UPDATE REGARDING HER DAD'S CONDITION. INFORMED DR. NARAYAN.
--- NOTE | 2022-01-26 14:22 | NUR ---
PT WAS GIVEN IVPB ZOSYN NOW, PT IS SLEEPING RESPIRATION IS EVEN ANDNO SIGN OF DISTRESS NOTED.
--- NOTE | 2022-01-26 14:35 | NUR ---
01/26/22 RD FOLLOW UP COMPLETED PLEASE REFER TO NUTRITION ASSESSMENT UNDER CARE ACTIVITY FOR ESTIMATED NUTRITIONAL NEEDS. 1. CONTINUE JEVITY 1.2 WITH A GOAL RATE OF 60 ML/HR -FWF: 100 ML Q4H OR PER MD -WILL PROVIDE 1728 KCAL AND 80 GM PROTEIN, MEETING 98% ESTIMATED KCAL AND 100% ESTIMATED PROTEIN NEEDS; ADEQUATE 2. RECOMMEND PROSOURCE TID PER RD PROTOCOL 3. RD WILL F/U 2-3 DAYS; HIGH RISK MONIQUE MALDONADO RD
--- NOTE | 2022-01-26 15:27 | NUR ---
PER CM. JASMIN IS THE DPOA FOR PT. SHE WILL BE THE ONE TO MAKE DECISIONS FOR PT. FAXED DPOA FILLED ON THE CHART. BUT WE CAN ALSO SHARE INFORMATION TO THE OTHER DAUGHTER EM. WILL ENDORSE TO THE NEXT NURSE.
[2022-01-26 18:00] VITALS: BP 144/77
--- NOTE | 2022-01-26 18:10 | NUR ---
DID ROUNDS. PT IN BED. BREATHING EVEN AND UNLABORED. NO SIGNS OF DISTRESS NOTED. CALL LIGHT WITHIN REACH. SAFETY MEASURES IN PLACE. WILL CONTINUE TO MONITOR.
--- NOTE | 2022-01-26 19:30 | NUR ---
RECEIVED PATIENT AWAKE, BEDBOUND O2 AT 2L NC TOLERATING WELL. NO ACUTE DISTRESS NOTED. RESPIRATION REGULAR NON LABORED. IVF D5 1/2 NS INFUSING ON THE LFA. G-TUBE FEEDING OF JEVITY 1.2 RUNNING AT 40 ML/HR WELL TOLERATED. SAFETY MEASURES IN PLACE. CALL LIGHT WITHIN REACH. WILL CONTINUE TO MONITOR PT.
--- NOTE | 2022-01-26 19:40 | NUR ---
GAVE REPORT TO GANG MINER NURSE FOR CONTINUITY OF CARE. ALL NEEDS MET THROUGHOUT SHIFT. PT IS STABLE.
--- NOTE | 2022-01-26 21:10 | NUR ---
SCHEDULED MEDICATIONS GIVEN ORDERED.
--- NOTE | 2022-01-26 21:30 | NUR ---
PATIENT CLEANED, CHANGED AND REPOSITIONED.
[2022-01-27] VITALS: BP 122/98
[2022-01-27] MEDS: PIPERACILLIN/TAZOBACTAM 3.375 GM in DEXTROSE 5% 50 ML IV SCH ×3 (00:01→13:06)
--- NOTE | 2022-01-27 00:01 | NUR ---
Administered scheduled medications per MD order.
[2022-01-27] MEDS: NACL 0.9% 1,000 ML IV SCH (03:35)
--- NOTE | 2022-01-27 05:00 | NUR ---
PATIENT PULLED OUT HIS IV LINE. STARTED A NEW PERIPHERAL IV ON THE LEFT FOREARM, TOLERATED WELL. NO COMPLAINTS OF PAIN. KEPT CLEAN, DRY AND COMFORTABLE, STABLE.
[2022-01-27 06:15] LABS: BASOPHILS % (AUTO) 0.7 % (0.0-2.0); EOSINOPHILS # (AUTO) 0.1 K/uL (0-0.4); EOSINOPHILS % (AUTO) 2.4 % (0.0-4.0); HEMATOCRIT 33.9 % (36-52); HEMOGLOBIN 12.1 g/dL (12.0-18.0); LYMPHOCYTES # (AUTO) 1.1 K/uL (2.0-11.5); LYMPHOCYTES % (AUTO) 20.8 % (20.5-51.1); MEAN CORPUSCULAR HEMOGLOBIN 32 pg (27-31); MEAN CORPUSCULAR HGB CONC 36 g/dL (33-37); MEAN CORPUSCULAR VOLUME 88.9 fL (80-94); MONOCYTES # (AUTO) 0.5 K/uL (0.8-1.0); MONOCYTES % (AUTO) 9.5 % (1.7-9.3); NEUTROPHILS # (AUTO) 3.6 K/uL (1.8-7.7); NEUTROPHILS % (AUTO) 66.6 % (42.2-75.2); PLATELET COUNT (AUTO) 332 K/uL (140-450); RED BLOOD CELL COUNT(AUTO) 3.81 MIL/uL (4.20-6.10); RED CELL DISTRIBUTION WIDTH 14.5 % (11.6-13.7); WHITE BLOOD COUNT (AUTO) 5.4 K/uL (4.8-10.8)
--- NOTE | 2022-01-27 07:30 | NUR ---
BEDSIDE ENDORSEMENT GIVEN TO AM NURSE FOR CONTINUITY OF CARE. PT. STABLE.
--- NOTE | 2022-01-27 07:32 | NUR ---
RECEIVED REPORT FROM GAME BREEDING FARM MANAGER NURSE FOR CONTINUITY OF CARE. PT IS SLEEPING, EASILY AROUSABLE BY VERBAL STIMULI. NO DISTRESS NOTED. BREATHING EVEN AND UNLABORED ON 2L NC. PT KEPT ON REMOVING IT BUT SATTING AT 96%. IV SITE ON LFA G24 RUNNING D5 1/2 NS AT 60 ML/HR. PT IN TUBE FEEDING RUNNING AT 50CC/HR JEVITY 1.2 SILVANO WITH H2O FLUSHING 100 ML/HR EVERY 6HRS. SKIN IS INTACT, WARM AND DRY TO TOUCH. CALL LIGHT WITHIN REACH. SAFETY MEASURES IN PLACE. WILL CONTINUE TO MONITOR.
[2022-01-27 07:35] LABS: ANION GAP 10.8 (8-16); CARBON DIOXIDE 32.5 mmol/L (21-32); CREATININE 1.5 mg/dL (0.6-1.3); MAGNESIUM 2.5 mg/dL (1.8-2.4); PHOSPHORUS 3.2 mg/dL (2.5-4.9); POTASSIUM 4.3 mmol/L (3.5-5.1); TOTAL BILIRUBIN 0.7 mg/dL (0.0-1.0)
[2022-01-27 08:00] VITALS: BP 144/80
--- NOTE | 2022-01-27 11:17 | NUR ---
PTIN BED COMFORTABLY RESTING. AWAKE. RESPIRATIONS EVEN AND UNLABORED ON ROOM AIR SATTING AT 98%. NO COMPLAINTS OF PAIN. PT IS CLEAN AND DRY. CALL LIGHT WITHIN REACH. BED AT ITS LOWEST POSITION. BED IS LOCKED WITH ALARM ON. SAFETY MEASURES IN PLACE. WILL CONTINUE TO MONITOR.
--- NOTE | 2022-01-27 12:25 | NUR ---
PHYSICAL THERAPIST AT BEDSIDE.
--- NOTE | 2022-01-27 13:30 | NUR ---
DAUGHTER JASMIN AT THE UNIT. SPOKE TO HER ABOUT PT DISCHARGE STATUS. PER CM EVERYTHING IS READY. JUST WAITING FOR THE FINAL DISCHARGE ORDER FROM . WAS AWARE. THEN ONCE DC ORDER RECEIVED, TRANSPORT WILL BE SET-UP.
--- NOTE | 2022-01-27 14:00 | NUR ---
INCREASED JEVITY TO 60ML/HR. GAVE PROSOURCE. PT TOLERATED WELL. WILL CONTINUE TO MONITOR.
[2022-01-27 16:00] VITALS: BP 143/78
--- NOTE | 2022-01-27 16:31 | NUR ---
GAVE REPORT TO MARTY OF [facility]. PICK-UP TIME AROUND 5:30-6:30PM. PT PULLED OUT HIS IV. WILL INSERT A NEW ONE.
[2022-01-27 16:33] VITALS: BP 143/78
[2022-01-27] MEDS ORDERED: PIPE1SOL IV (16:59)
--- NOTE | 2022-01-27 17:29 | NUR ---
RN INSERTED NEW IV. ATTEMPTED ONCE. NEW IV RFA 22G. PT TOLERATED WELL.
--- NOTE | 2022-01-27 18:00 | NUR ---
DISCHARGE PAPER DISCUSSED WITH THE PT. PT UNABLE TO SIGN. PT DC TO [facility]. PICKED UP BY TRANSPORT STAFF [employer]IA [employer]. PT LEAVE WITH IV LINE AT RFA 22G, INTACT. PT WILL BE RECEIVING IV ABX AT [facility].REMOVED WRIST BAND. ALL BELONGINGS TAKEN UPON DC. PT IS STABLE.
== END 2022-01-27 18:00 | DRG 871 ==
LOC: MED 13:02 → MMU 16:31 → MTU 16:31
PROVIDERS: ADMIT Preventive Medicine Preventive Medicine/Occupational Environmental Medicine; ATTEND Preventive Medicine Preventive Medicine/Occupational Environmental Medicine
PROC: 0DJ08ZZ Inspection of Upper Intestinal Tract, Via Natural or Artificial Opening Endoscopic (ICD-10-PCS; 2022-01-24)
PROC: 0DH64UZ Insertion of Feeding Device into Stomach, Percutaneous Endoscopic Approach (ICD-10-PCS; principal; 2022-01-24 12:30)
DX: A41.9 Sepsis, unspecified organism (principal); J15.1 Pneumonia due to Pseudomonas; C68.0 Malignant neoplasm of urethra; N17.9 Acute kidney failure, unspecified; R13.19 Other dysphagia; D64.9 Anemia, unspecified; E78.00 Pure hypercholesterolemia, unspecified; E78.5 Hyperlipidemia, unspecified; E83.51 Hypocalcemia; E88.09 Other disorders of plasma-protein metabolism, not elsewhere classified; Z20.822 Contact with and (suspected) exposure to COVID-19; C32.0 Malignant neoplasm of glottis; E83.41 Hypermagnesemia; I12.9 Hypertensive chronic kidney disease with stage 1 through stage 4 chronic kidney disease, or unspecified chronic kidney disease; N18.9 Chronic kidney disease, unspecified; Z88.8 Allergy status to other drugs, medicaments and biological substances; Z87.891 Personal history of nicotine dependence; Z85.819 Personal history of malignant neoplasm of unspecified site of lip, oral cavity, and pharynx; Z85.21 Personal history of malignant neoplasm of larynx
CPT/HCPCS: 36415; 70450; 70490; 71045; 76770; 80048; 80053; 80202; 80305; 81003; 82948; 83605; 83735; 84100; 84484; 85025; 85651; 86140; 87070; 87081; 87205; 92610; 93005; 96361; 96365; 97116; 97163-GP; 99291; G0480; G0482; J0360; J0690; J0696; J1630; J2060; J2250; J2270; J2405; J2543; J3010; J3370; J7030; J7060; Q0092